=== PATIENT | female | born 1945 | race Caucasian/White ===

== ENCOUNTER 2017-06-02 06:26 | Day surgery (SDC) | payer MEDICARE, BC ==
[2017-05-26 09:56] VITALS: BMI 23.0
[2017-06-02] MEDS ORDERED: Levofloxacin 500 mg/D5W 100 ml Premix Bag ONE (07:14)
[2017-06-02] MEDS ORDERED: Clindamycin/D5W 900 mg/50 ml Premix Bag ONE (07:14)
[2017-06-02] MEDS ORDERED: Thrombin 5000 UNITS/5 ML VIAL ONE (09:35)
[2017-06-02] MEDS ORDERED: Bupivacaine HCl 0.5%/Epinephrine 1:200,000/PF 30 ml Vial ONE (09:35)
[2017-06-02] MEDS ORDERED: Fentanyl 250 MCG/5 ML VIAL ONE (09:37)
--- NOTE | 2017-06-02 09:48 | HP ---
HISTORY OF PRESENT ILLNESS: Ms. Sifuentes presents for evaluation of bilateral lower extremity radiculo karolyn pain L4-L5 pattern. She is known to us from previous L5-S1 decompression roughly five ye ars ago. She has had an epidural steroid injection this year which has helped her pain, but it is st arting to worsen again. She denies weakness, numbness, or falls. MRI from earlier this year r eveals severe bilateral foraminal narrowing at L4 and associated lateral recess stenosis impinging up on the bilateral descending L5 . All this seems to fit her symptoms rather well. PAST MEDICAL HISTORY: Thyroid disease, heart burn and irritable bowel syndrome. ALLERGIES: CODEINE, PENICILLIN. HOME MEDICATIONS: Celebrex, levothyroxine, estradiol, vitamin C, zolpidem. PAST SURGICAL HISTORY: Significant for tonsillectomy, hysterectomy, cervical spinal fusion, lumbar l aminectomy, unspecified, thumb, wrist, and ring finger surgery and bilateral cataract, dissection. PHYSICAL EXAMINATION: The patient is alert and oriented x3. Gait is, however, antalgic. Lower extr emity . ASSESSMENT: Lumbar radiculopathy pain. PLAN: Dr. Penaloza met with the patient, reviewed imaging and then ultimately advocated for an L4-L5 de compression and foraminotomy. He explained to the patient the risks, benefits, and alternatives to t he procedure. The patient expressed understanding and would like to move forward with surgery as dis cussed. I do believe the patient is mentally competent and capable of making medical decisions for h erself and we will move forward with surgery as planned. Maurisio Luna PA-C, dictating for Cosme Penaloza M.D.
[2017-06-02] MEDS ORDERED: PHENYLEPHRINE-NS 100 MCG/ML 10 ML SYRINGE ONE (11:19)
[2017-06-02] MEDS ORDERED: Dexamethasone 20 MG/5 ML VIAL ONE (11:19)
[2017-06-02] MEDS ORDERED: PROPOFOL 200 MG/20 ML VIAL ONE (11:19)
[2017-06-02] MEDS ORDERED: Lidocaine 1% PF 5 ML VIAL ONE (11:19)
[2017-06-02] MEDS ORDERED: Glycopyrrolate 0.2 MG/ML 5 ML SYRINGE ONE (11:19)
[2017-06-02] MEDS ORDERED: Ondansetron HCl/PF 4 MG/2 ML Vial ONE (11:19)
[2017-06-02] MEDS ORDERED: Fentanyl 100 MCG/2 ML VIAL ONE (11:58)
--- NOTE | 2017-06-03 11:32 | OP ---
DATE OF PROCEDURE: 06/23/2017 SURGEON: Cosme Penaloza M.D. DREDGE CAPTAIN: Maurisio Luna PA-C. INDICATION: Pain. DIAGNOSIS: Lumbar stenosis. PROCEDURE: Reoperation L4-5 lumbar decompression, L4 foraminotomies. ANESTHESIA: General. TECHNIQUE: The patient was brought into the operating room and placed under general anesthesia. She was flipped from a supine or prone position on the operating room table. A portion of her old linea r incision was prepped and draped. After an appropriate operative pause, the incision was created an d the soft tissues were swept away from midline. Self-retaining retractors were put in the wound for optimal exposure. After confirming the appropriate level with serum fluoroscopy, an Adson rongeur a s well as a high-speed cutting drill bit and 2, 3 and 4 mm Kerrisons were used to perform a laminecto my at the L4-5 segment. Foraminotomies were performed of the exiting L4 nerve roots. After complete decompression, the wound was irrigated. Hemostasis was maintained throughout. The wound was then c losed in anatomic layers and a pressure dressing was applied. There were no known procedural complic ations.
== END 2017-06-02 14:22 | disposition home or self-care (01) ==
LOC: SDC 06:26
PROVIDERS: ATTEND Neurological Surgery
PROC: 01NB0ZZ Release Lumbar Nerve, Open Approach (ICD-10-PCS; principal; 2017-06-02)
DX: M48.061 Spinal stenosis, lumbar region without neurogenic claudication (principal); M54.16 Radiculopathy, lumbar region; M19.90 Unspecified osteoarthritis, unspecified site; E89.0 Postprocedural hypothyroidism; K58.9 Irritable bowel syndrome, unspecified; Z79.899 Other long term (current) drug therapy; Z88.0 Allergy status to penicillin; Z88.5 Allergy status to narcotic agent; Z98.890 Other specified postprocedural states
CPT/HCPCS: 76001; 96374; J0670; J1100; J1956; J2001; J2405; J2704; J3010; J3490